=== PATIENT | male | born 1990 | race Caucasian/White ===

== ENCOUNTER 2016-10-21 09:10 | Emergency (ER) | payer MEDICAID ==
[2016-10-21 09:31] VITALS: RESP 18
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
[2016-10-21 09:48] LABS: ANION GAP 18 mEq/L (8-16); CALCIUM 10.4 mg/dL (8.5-10.4); CARBON DIOXIDE 18 mEq/l (22-31); CHLORIDE 106 mEq/L (97-110); CREATININE 0.8 mg/dL (0.7-1.3); ETHANOL SERUM < 10 mg/dL (0-10); GLOMERULAR FILTRATION RATE > 60; GLUCOSE 123 mg/dL (70-100); POTASSIUM 4.2 mEq/L (3.5-5.2); SODIUM 142 mEq/L (134-144)
[2016-10-21 10:17] LABS: HEMATOCRIT 47.3 % (40.0-51.0); HEMOGLOBIN 16.8 g/dL (13.7-17.5); MEAN CELL HEMOGLOBIN 31.2 pg (27.9-34.1); MEAN CELL HEMOGLOBIN CONCENTR. 35.5 g/dL (32.4-36.7); MEAN CELL VOLUME 87.8 fL (81.5-99.8); RED BLOOD CELL COUNT 5.39 10^6/uL (4.40-6.38); RED CELL DISTRIBUTION WIDTH 12.2 % (11.5-15.2)
[2016-10-21] MEDS ORDERED: LORazepam 1 MG TAB ONE (12:57)
[2016-10-21] MEDS ORDERED: LORazepam 1 MG TAB PO ONE ×2 (13:02→21:08)
[2016-10-21 19:34] VITALS: O2SAT 95
[2016-10-21 20:39] VITALS: BP 132/94; PULSE 92; TEMP 97.7
== END 2016-10-21 22:03 ==
DX: F25.9 Schizoaffective disorder, unspecified (principal)
CPT/HCPCS: 80305; G0480

== ENCOUNTER 2017-05-06 07:24 | Emergency (ER) | payer MEDICAID ==
--- NOTE | 2017-05-06 07:29 | EDPHY ---
HPI/HX/ROS/PE/MDM Narrative: CHIEF COMPLAINT: Off medications HPI: The patient is a 26 y/o male with schizophrenia who arrives via EMS voluntarily requesting help getting back onto his medications. He reports he stopped his medications 5 days ago because, "I just went disturbed." He cannot further describe what this means. He denies hallucinations, SI, HI, co- ingestions. No medical complaints, recent illness, or recent trauma. REVIEW OF SYSTEMS: Aside from elements discussed in the HPI, a comprehensive 10-point review of systems was reviewed and is negative. PMH: Schizophrenia - Abilify, clozapine, propanol; Asperger's Prior medical records reviewed including ED visit 10/21/16 for M1 hold. SOCIAL HISTORY: Lives in [place]. Unemployed. PHYSICAL EXAM: General:Patient is alert, in no acute distress. ENT:Eyes are normal to inspection. ENT inspection normal. Neck: Normal inspection. Full range of motion. Respiratory:No respiratory distress. Breath sounds normal bilaterally. Cardiovascular: Regular rate and rhythm. Strong peripheral pulses. Normal cap refill. Abdomen:The abdomen is nontender to palpation. There are no peritoneal signs. Back: Normal to inspection. No tenderness to palpation. Skin: Normal color. No rash. Warm and dry. Extremities: Normal appearance. Full range of motion. Neuro: Oriented x3. Normal motor function. Normal sensory function. (Tobias Blanco) ED Course: This is a 26 y/o male with schizophrenia who presents voluntarily requesting help restarting his psychiatric medications that he discontinued 5 days ago. His exam is unremarkable. Plan for standard psychiatric clearance labs and then mental health evaluation. 100mg PO Clozaril administered. 0820: Patient is becoming more psychotic and appears to be responding to internal stimuli. 1mg PO Ativan and 5mg PO Zyprexa. Patient has been placed on a detainer. 1500: Patient signed out to Dr. Marino. (Tobias Blanco) 3:00 p.m. I assumed care of this patient at shift change. He presents with acute psychosis, MH eval and disposition pending. 10:30pm: seen by mental health and placed on an M1 hold. Plan for inpt MH disposition, possibly [facility]. (Brittani Marino) 6:30 a.m.- Patient has remained stable throughout my shift. He continues to be on an M1 hold. He will likely be placed at [facility] later today. I anticipate at 7:00 a.m., the case will be signed out to the oncoming provider Dr. Gatica. (Maddy Cardona) 700: The patient is signed out to me at change of shift by Dr. Cardona. Patient is awaiting placement. Patient will go to [facility]. Admitted Dr. Barahona ( Pushpa Gatica) - Data Points Laboratory Results: Laboratory Results 05/06/17 07:44 05/06/17 07:44 Medications Given: Clozapine (Clozaril) 100 mg PO DAILY NICKIE Stop: 11/02/17 08:59 Last Admin: 05/06/17 07:59 Dose: 100 mg Discontinued Medications Lorazepam (Ativan) 1 mg PO EDNOW ONE Stop: 05/06/17 08:23 Last Admin: 05/06/17 08:26 Dose: 1 mg Lorazepam (Ativan) 1 mg PO EDNOW ONE Stop: 05/06/17 19:28 Last Admin: 05/06/17 19:28 Dose: 1 mg Lorazepam (Ativan) 1 mg PO EDNOW ONE Stop: 05/06/17 19:54 Last Admin: 05/06/17 19:53 Dose: 1 mg Olanzapine (Zyprexa Zydis) 5 mg PO EDNOW ONE Stop: 05/06/17 08:23 Last Admin: 05/06/17 08:26 Dose: 5 mg Olanzapine (Olanzapine) 5 mg PO ONCE ONE Stop: 05/06/17 23:56 Last Admin: 05/07/17 00:03 Dose: 5 mg General Time Seen by Provider: 05/06/17 07:25 Initial Vital Signs: Initial Vital Signs Temperature (C) 37.0 C 05/06/17 08:03 Heart Rate 91 05/06/17 08:03 Respiratory Rate 16 05/06/17 08:03 Blood Pressure 131/95 H 05/06/17 08:03 O2 Sat (%) 97 05/06/17 08:03 O2 Delivery Mode Room Air Allergies/Adverse Reactions: No Allergies Allergy (Verified 11/02/15 21:09) Home Medications: Medication Instructions Recorded ARIPiprazole [Abilify 10 mg (*)] 15 mg PO DAILY #0 tab 11/12/15 ARIPiprazole [Abilify Maintena] 400 mg IM ONCE #0 vial 11/12/15 LORazepam [Ativan (*)] 0.5 mg PO BID #0 tab 11/12/15 Propranolol HCl [Inderal 10mg (*)] 10 mg PO BID #0 tab 11/12/15 cloZAPine [Clozaril (*)] 150 mg PO DAILY@16 #0 tab 11/12/15 Departure - Departure Disposition: Other Psych, Not [place] Clinical Impression: Acute psychosis Schizophrenia Qualifiers: Schizophrenia type: paranoid schizophrenia Qualified Code(s): F20.0 - Paranoid schizophrenia Condition: Fair Referrals: Patient,NotPresent [Unknown] - As per Instructions Report Scribed for: Tobias Blanco Report Scribed by: Katie Lugo Date of Report: 05/06/17 Time of Report: 07:29 Physician Review and Approval Statement: Portions of this note were transcribed by an ED scribe. I personally performed the history, physical exam, and medical decision making; and confirm the accuracy of the information in the transcribed note.
[2017-05-06 07:51] LABS: PLATELET COUNT 330 10^3/uL (150-400)
[2017-05-06] MEDS: cloZAPine 100 MG TAB PO SCH (07:59)
[2017-05-06] MEDS ORDERED: OLANZapine DISINTEGR 5 MG TAB PO ONE (08:22)
[2017-05-06] MEDS ORDERED: LORazepam 1 MG TAB PO ONE ×3 (08:22→19:53)
[2017-05-06] MEDS ORDERED: LORazepam 1 MG TAB ONE (19:04)
[2017-05-06] MEDS ORDERED: OLANZapine 5 MG TAB ONE (19:42)
[2017-05-06] MEDS ORDERED: OLANZapine 5 MG TAB PO ONE (23:55)
[2017-05-07] MEDS: cloZAPine 100 MG TAB PO SCH (09:02)
[2017-05-07 10:10] VITALS: BP 119/85; PULSE 95; RESP 16; TEMP 98.2; O2SAT 97
== END 2017-05-07 10:10 ==
LOC: EDUNIT#
DX: F20.0 Paranoid schizophrenia (principal)
CPT/HCPCS: 80305; G0480